=== PATIENT | female | born 1955 | race Caucasian/White ===

== ENCOUNTER → 2018-07-31 12:32 | Outpatient (CLI) | payer OTHER, SELFPAY ==
--- NOTE | 2018-07-31 | DI.MG.S_ITS ---
BILATERAL DIGITAL SCREENING MAMMOGRAM 3D/2D WITH CAD: 07/31/2018 CLINICAL: Routine screening. Family history of breast cancer. Comparison is made to exams dated: 07/29/2016 mammogram - [facility], 02/19/2014 mammogram, and 11/14/2012 mammogram - [facility]. There are scattered fibroglandular elements in both breasts. Current study was also evaluated with a Computer Aided Detection (CAD) system. Punctate right breast calcifications are stable in appearance to comparison exams. No significant masses, calcifications, or other findings are seen in either breast. There has been no significant interval change. IMPRESSION: There is no mammographic evidence of malignancy. A 1 year screening mammogram is recommended. This exam was interpreted at Station ID: [id number]. NOTE: For mammograms, a report in lay terms will be sent to the patient. Approximately 15% of breast malignancies will not be visualized mammographically. In the management of a palpable breast mass, a negative mammogram must not discourage biopsy of a clinically suspicious lesion. Electronically Signed By: Wiliam Avalos M.D. ecl/:07/31/2018 18:02:24 letter sent: Normal Exam ACR BI-RADS Category 2: Benign Finding(s) 3342F
--- NOTE | 2018-07-31 | DI.RAD.S_ITS ---
This blank DEXA report has been sent in error by the PACS system. The correct and complete report will be forthcoming in 1-2 days. Thank you for your patience and understanding. Dictated by: Joanne Mariano M.D. on 07/31/2018 at 14:33 Approved by: Joanne Mariano M.D. on 07/31/2018 at 14:33
== END ==
PROVIDERS: Family Provider Internal Medicine; PCP Internal Medicine; Visit Provider Internal Medicine
DX: Z12.31 Encounter for screening mammogram for malignant neoplasm of breast (principal); Z80.3 Family history of malignant neoplasm of breast; Z13.820 Encounter for screening for osteoporosis; M85.852 Other specified disorders of bone density and structure, left thigh; Z78.0 Asymptomatic menopausal state; Z87.891 Personal history of nicotine dependence
CPT/HCPCS: 77063; 77067; 77080

== ENCOUNTER → 2018-08-23 08:48 | Outpatient (CLI) | payer OTHER, SELFPAY ==
[2018-08-23 09:26] LABS: Add Manual Diff / Slide Review NO; Basophils Absolute Auto 100 /uL (0-100); Basophils Percent Auto 1.1 % (0-2); Eosinophils Absolute Auto 200 /uL (0-450); Eosinophils Percent Auto 4.3 % (2-4); Lymphocytes Absolute Auto 2000 /uL (1100-4500); Lymphocytes Percent Auto 35.4 % (25-40); Mean Corpuscular HGB Conc 32.5 % (30-36); Mean Corpuscular Hemoglobin 26.1 PG (26-34); Mean Corpuscular Volume 80.2 fL (80-100); Monocytes Absolute Auto 400 /uL (0-900); Monocytes Percent Auto 7.9 % (3-14); Neutrophils Absolute Auto 2900 /uL (1500-7000); Neutrophils Percent Auto 51.3 % (50-75); Platelet Count 381 X10^3/uL (150-400); Red Blood Cell Count 4.98 X10^6/uL (4.0-5.2); White Blood Cell Count 5.6 X10^3/uL (4.5-11.0)
[2018-08-23 09:38] LABS: Alanine Aminotransferase 23 IU/L (9-52); Albumin 4.4 g/dL (3.5-5.0); Albumin Globulin Ratio 1.5 (1.0-2.8); Alkaline Phosphatase 73 U/L (38-126); Aspartate Aminotransferase 25 IU/L (14-36); BUN Creatinine Ratio 17.1 (6-22); Bilirubin Total 0.5 mg/dL (0.2-1.3); Blood Urea Nitrogen 12 mg/dL (7-17); Calcium 9.3 mg/dL (8.4-10.2); Carbon Dioxide 30 mmol/L (22-32); Chloride 103 mmol/L (98-107); Cholesterol 186 mg/dL (140-199); Estimated Glomerular Filt Rate > 60.0 mL/min (>60); Glucose 86 mg/dL (80-110); HDL Cholesterol 47 mg/dL (40-60); HEMOLYSIS < 15 (0-50); LDL Cholesterol Calculated 116 mg/dL (<100); Potassium 4.3 mmol/L (3.4-5.1); Sodium 140 mmol/L (137-145); Total Protein 7.4 g/dL (6.3-8.2); Triglycerides 115 mg/dL (35-150)
[2018-08-23 09:52] LABS: Vitamin D 25 Hydroxy (D3) 51.1 ng/mL (30.0-100.0)
[2018-08-23 10:07] LABS: Thyroid Stimulating Hormone 1.85 uIU/mL (0.47-4.68)
== END ==
PROVIDERS: PCP Internal Medicine; Visit Provider Internal Medicine
DX: Z00.00 Encounter for general adult medical examination without abnormal findings (principal); F33.42 Major depressive disorder, recurrent, in full remission; N95.2 Postmenopausal atrophic vaginitis; Z87.81 Personal history of (healed) traumatic fracture
CPT/HCPCS: 36415; 80053; 80061; 82306; 84443; 85025

== ENCOUNTER → 2018-08-23 09:14 | Outpatient (CLI) | payer OTHER, SELFPAY ==
--- NOTE | 2018-08-23 | DI.RAD.S_ITS ---
PROCEDURE: XR SACROILIAC JOINT MIN 3V INDICATIONS: LUMBAR PAIN TECHNIQUE: 3 views of the sacroiliac joints were acquired. COMPARISON: None. FINDINGS: Bones: No bony erosions or ankylosis. No suspicious bony lesions. No fractures. Minimal osteoarthritic change at the inferior third of each sacroiliac joint. Soft tissues: Overlying bowel gas pattern is normal. No suspicious soft tissue densities. IMPRESSION: Normal study except for mild degenerative osteoarthritic change at the inferior third of each sacroiliac joint. Dictated by: Manohar Tapia M.D. on 08/23/2018 at 10:13 Approved by: Manohar Tapia M.D. on 08/23/2018 at 10:13
--- NOTE | 2018-08-23 | DI.RAD.S_ITS ---
PROCEDURE: XR LUMBAR SPINE 2-3V INDICATIONS: LUMBAR PAIN TECHNIQUE: 3 views of the lumbar spine were acquired. COMPARISON: [facility], CR, XR SACROILIAC JOINT MIN 3V, 08/23/2018, 9:20. FINDINGS: Bones: 5 iyr-kec-hagkoae vertebrae are present. There is normal bony alignment. No vertebral body compression fractures. No suspicious bony lesions. Note is made of what appears to be a prior osteotomy resection of the coccyx from the sacrococcygeal junction inferiorly. Mild to moderate lumbosacral spine degenerative disc disease at L3-4 and minimal such degeneration elsewhere. Facet osteoarthritis is moderate at L5-S1. Soft tissues: Overlying bowel gas pattern is normal. No suspicious soft tissue calcifications. IMPRESSION: Prior coccygeal resection appears to have been performed. Please correlate clinically. Moderate L3-4 degenerative disc disease. Moderate facet osteoarthritis bilaterally at L5-S1. No acute trauma found. Dictated by: Manohar Tapia M.D. on 08/23/2018 at 10:14 Approved by: Manohar Tapia M.D. on 08/23/2018 at 10:15
== END ==
PROVIDERS: PCP Internal Medicine; Visit Provider Internal Medicine
DX: M54.5 Low back pain (principal); M51.36 Other intervertebral disc degeneration, lumbar region; M47.817 Spondylosis without myelopathy or radiculopathy, lumbosacral region; Z00.00 Encounter for general adult medical examination without abnormal findings; F33.42 Major depressive disorder, recurrent, in full remission; N95.2 Postmenopausal atrophic vaginitis; Z87.81 Personal history of (healed) traumatic fracture
CPT/HCPCS: 36415; 72100; 72202; 80053; 80061; 82306; 84443; 85025

== ENCOUNTER → 2019-12-24 21:43 | Outpatient (CLI) | payer OTHER, SELFPAY ==
[2019-12-24 22:00] LABS: Add Manual Diff / Slide Review NO; Basophils Absolute Auto 100 /uL (0-100); Basophils Percent Auto 1.2 % (0-2); Eosinophils Absolute Auto 100 /uL (0-450); Eosinophils Percent Auto 1.1 % (2-4); Hematocrit 38.6 % (36-46); Hemoglobin 12.6 g/dL (12.0-16.0); Lymphocytes Absolute Auto 1500 /uL (1100-4500); Mean Corpuscular HGB Conc 32.5 % (30-36); Mean Corpuscular Hemoglobin 26.7 PG (26-34); Mean Corpuscular Volume 82.2 fL (80-100); Monocytes Absolute Auto 400 /uL (0-900); Monocytes Percent Auto 5.7 % (3-14); Neutrophils Absolute Auto 4400 /uL (1500-7000); Platelet Count 373 X10^3/uL (150-400); Red Cell Distribution Width 14.1 % (11.6-14.8); White Blood Cell Count 6.3 X10^3/uL (4.5-11.0)
[2019-12-24 22:51] LABS: TSH w/ Reflex to FT4 1.25 uIU/mL (0.47-4.68)
[2019-12-25 04:34] LABS: Alanine Aminotransferase 17 IU/L (<35); Albumin 4.5 g/dL (3.5-5.0); Albumin Globulin Ratio 1.7 (1.0-2.8); Alkaline Phosphatase 86 U/L (38-126); Aspartate Aminotransferase 27 IU/L (14-36); BUN Creatinine Ratio 14.9 (6-22); Bilirubin Total 0.4 mg/dL (0.2-1.3); Blood Urea Nitrogen 10 mg/dL (7-17); Calcium 9.4 mg/dL (8.4-10.2); Carbon Dioxide 28 mmol/L (22-32); Chloride 97 mmol/L (98-107); Estimated Glomerular Filt Rate > 60.0 mL/min (>60); Globulin 2.7 g/dL (1.7-4.1); Glucose 87 mg/dL (80-110); HEMOLYSIS < 15 (0-50); Potassium 4.2 mmol/L (3.4-5.1); Sodium 135 mmol/L (137-145); Total Protein 7.2 g/dL (6.3-8.2)
== END ==
PROVIDERS: PCP Internal Medicine; Visit Provider Internal Medicine
DX: R63.4 Abnormal weight loss (principal)
CPT/HCPCS: 80053; 84134; 84443; 85025

== ENCOUNTER → 2019-12-25 11:50 | Outpatient (CLI) | payer OTHER, SELFPAY ==
--- NOTE | 2019-12-25 | DI.RAD.S_ITS ---
PROCEDURE: XR CHEST 2V INDICATIONS: WEIGHT LOSS OBS ON EXAMINATION TECHNIQUE: 2 views of the chest were acquired. COMPARISON: None. FINDINGS: Surgical changes and devices: None. Lungs and pleura: Lungs are clear. No pleural effusions or pneumothorax. Mediastinum: Mediastinal contours are normal. Heart size is normal. Bones and chest wall: No suspicious bony abnormalities. Soft tissues appear unremarkable. IMPRESSION: No acute cardiopulmonary findings. Dictated by: Yessica Moran M.D. on 12/25/2019 at 15:23 Approved by: Yessica Moran M.D. on 12/25/2019 at 15:24
--- NOTE | 2019-12-25 | DI.MRI.S_ITS ---
PROCEDURE: MR HEAD/BRAIN WO/W CON INDICATIONS: New daily persistent headache (NDPH)/ weight loss TECHNIQUE: Noncontrast axial T1 spin echo, axial T2 fast spin echo, sagittal and axial FLAIR, coronal T2 fast spin echo, axial gradient echo, axial diffusion and ADC through the brain. After the administration of contrast, axial and coronal T1 spin echo with fat saturation through the brain. COMPARISON: None. FINDINGS: Image quality: Excellent. CSF spaces: Basal cisterns are patent. No extra-axial fluid collections. Ventricles are normal in size and shape. Brain: No midline shift. No intracranial bleeds or masses. No abnormal intracranial enhancement. There is cerebral volume loss for age. There is periventricular white matter chronic small vessel ischemic change. The brainstem appears normal. Diffusion-weighted images demonstrate no acute ischemic insults. No chronic ischemic insults. Normal intravascular flow voids are present. Partially empty sella is incidentally noted. Skull and face: Calvarial marrow is normal in signal. Orbits appear normal. Sinuses: Sinuses and mastoids appear clear. IMPRESSION: No imaging explanation is found for this patient's presenting symptoms. No masses or abnormal enhancement can be seen. Note is made of age-appropriate brain parenchymal volume loss and chronic small vessel ischemic changes. Dictated by: Vish Durham M.D. on 12/25/2019 at 12:14 Approved by: Vish Durham M.D. on 12/25/2019 at 12:15
== END ==
PROVIDERS: PCP Internal Medicine; Referring Provider Internal Medicine; Visit Provider Internal Medicine
DX: G44.52 New daily persistent headache (NDPH) (principal); R63.4 Abnormal weight loss
CPT/HCPCS: 70553; 71046; A9579

== ENCOUNTER → 2020-02-29 08:34 | Outpatient (CLI) | payer OTHER, SELFPAY ==
--- NOTE | 2020-02-29 | DI.MG.S_ITS ---
BILATERAL DIGITAL SCREENING MAMMOGRAM 3D/2D WITH CAD: 02/29/2020 CLINICAL: Routine screening. Family history of breast cancer. Comparison is made to exams dated: 07/31/2018 mammogram, 07/29/2016 mammogram - [facility], and 02/19/2014 mammogram - [facility]. There are scattered fibroglandular elements in both breasts. Current study was also evaluated with a Computer Aided Detection (CAD) system. There are benign calcifications in both breasts. No significant masses, calcifications, or other findings are seen in either breast. There has been no significant interval change. IMPRESSION: BENIGN There is no mammographic evidence of malignancy. A 1 year screening mammogram is recommended. This exam was interpreted at Station ID: [id number]. NOTE: For mammograms, a report in lay terms will be sent to the patient. Approximately 15% of breast malignancies will not be visualized mammographically. In the management of a palpable breast mass, a negative mammogram must not discourage biopsy of a clinically suspicious lesion. Electronically Signed By: Lasha roa/caryl:02/29/2020 13:03:04 letter sent: Normal Exam ACR BI-RADS Category 2: Benign Finding(s) 3342F
== END ==
PROVIDERS: PCP Internal Medicine; Referring Provider Internal Medicine; Visit Provider Internal Medicine
DX: Z12.31 Encounter for screening mammogram for malignant neoplasm of breast (principal); Z80.3 Family history of malignant neoplasm of breast
CPT/HCPCS: 77063; 77067

== ENCOUNTER → 2021-02-16 14:28 | Outpatient (CLI) | payer MEDICARE, OTHER, SELFPAY ==
[2021-02-16 18:08] LABS: COVID19 -Nasal RAPID Negative (Negative)
== END ==
PROVIDERS: PCP Internal Medicine; Visit Provider Nurse Practitioner Family
DX: Z20.822 Contact with and (suspected) exposure to COVID-19 (principal); J02.9 Acute pharyngitis, unspecified; R53.83 Other fatigue
CPT/HCPCS: 87635

== ENCOUNTER → 2021-05-15 08:29 | Outpatient (CLI) | payer MEDICARE, OTHER, SELFPAY ==
--- NOTE | 2021-05-15 08:33 | DI.MG.S_ITS ---
BILATERAL DIGITAL SCREENING MAMMOGRAM 3D/2D WITH CAD: 05/15/2021 CLINICAL: Routine screening. Family history of breast cancer. Comparison is made to exams dated: 02/29/2020 mammogram, 07/31/2018 mammogram, and 07/29/2016 mammogram - [facility]. There are scattered fibroglandular elements in both breasts. Current study was also evaluated with a Computer Aided Detection (CAD) system. There are stable benign calcifications in both breasts. No significant masses, calcifications, or other findings are seen in either breast. There has been no significant interval change. IMPRESSION: BENIGN There is no mammographic evidence of malignancy. A 1 year screening mammogram is recommended. This exam was interpreted at Station ID: [id number]. NOTE: For mammograms, a report in lay terms will be sent to the patient. Approximately 15% of breast malignancies will not be visualized mammographically. In the management of a palpable breast mass, a negative mammogram must not discourage biopsy of a clinically suspicious lesion. Electronically Signed By: Mike Shipley acr/caryl:05/15/2021 11:02:47 letter sent: Normal Exam ACR BI-RADS Category 2: Benign Finding(s) 3342F
== END ==
PROVIDERS: PCP Family Medicine; Referring Provider Internal Medicine; Visit Provider Internal Medicine
DX: Z12.31 Encounter for screening mammogram for malignant neoplasm of breast (principal); Z80.3 Family history of malignant neoplasm of breast
CPT/HCPCS: 77063; 77067

== ENCOUNTER → 2022-11-23 07:42 | Outpatient (CLI) | payer MEDICARE, OTHER, SELFPAY ==
--- NOTE | 2022-11-23 | DI.US.S_ITS ---
PROCEDURE: US ARTERIAL DUPLEX LE LT INDICATIONS: COLD LEG TECHNIQUE: Color and pulse Doppler interrogation was performed of the left lower extremity arterial system, with image documentation. COMPARISON: None. FINDINGS: Common femoral artery: 104 cm/sec, with triphasic flow. Deep femoral artery: 67 cm/sec, with triphasic flow. Proximal superficial femoral artery: 98 cm/sec, with triphasic flow. Mid superficial femoral artery: 98 cm/sec, with triphasic flow. Distal superficial femoral artery: 68 cm/sec, with triphasic flow. Popliteal artery: 74 cm/sec, with triphasic flow. Posterior tibial artery: 57 cm/sec, with biphasic flow. Anterior tibial artery/dorsalis pedis: 59 cm/sec, with biphasic flow. Valverde-scale imaging description: No significant plaque IMPRESSION: No significant plaque by imaging or velocity/waveform criteria. Dictated by: Mike Shipley M.D. on 11/23/2022 at 13:13 Approved by: Mike Shipley M.D. on 11/23/2022 at 13:15
== END ==
PROVIDERS: PCP Student in an Organized Health Care Education/Training Program; Referring Provider Physician Assistant; Visit Provider Physician Assistant
DX: R20.9 Unspecified disturbances of skin sensation (principal)
CPT/HCPCS: 93926

== ENCOUNTER → 2024-04-19 08:55 | Outpatient (CLI) | payer MEDICARE, OTHER, SELFPAY ==
--- NOTE | 2024-04-19 08:56 | DI.MG.S_ITS ---
BILATERAL DIGITAL SCREENING MAMMOGRAM 3D/2D WITH CAD: 04/19/2024 CLINICAL: Routine screening. Family history of breast cancer. Comparison is made to exams dated: 03/23/2023 mammogram - [facility], 05/15/2021 mammogram, and 02/29/2020 mammogram - [facility]. There are scattered areas of fibroglandular density (category b / 25%-50% glandular tissue). Current study was also evaluated with a Computer Aided Detection (CAD) system. There are stable benign calcifications in both breasts. No significant masses, calcifications, or other findings are seen in either breast. There has been no significant interval change. IMPRESSION: BENIGN There is no mammographic evidence of malignancy. A 1 year screening mammogram is recommended. Based on the Tyrer Cuzick model (a risk assessment model) the patient's lifetime risk is 13.8% and her 10 year risk is 7.8%. According to the ACR, ACS, and NCCN guidelines, an annual breast MRI exam along with mammogram is recommended if the patient's lifetime risk is 20% or greater. This exam was interpreted at Station ID: [id number]. NOTE: For mammograms, a report in lay terms will be sent to the patient. Approximately 15% of breast malignancies will not be visualized mammographically. In the management of a palpable breast mass, a negative mammogram must not discourage biopsy of a clinically suspicious lesion. Electronically Signed By: Yessica morocho/caryl:04/19/2024 10:28:03 letter sent: Normal Exam ACR BI-RADS Category 2: Benign
== END ==
PROVIDERS: PCP Student in an Organized Health Care Education/Training Program; Referring Provider Student in an Organized Health Care Education/Training Program; Visit Provider Student in an Organized Health Care Education/Training Program
DX: Z12.31 Encounter for screening mammogram for malignant neoplasm of breast (principal); Z80.3 Family history of malignant neoplasm of breast
CPT/HCPCS: 77063; 77067

== ENCOUNTER → 2025-03-05 13:53 | Outpatient (CLI) | payer MEDICARE, OTHER, SELFPAY ==
--- NOTE | 2025-03-05 13:56 | DI.RAD.S_ITS ---
PROCEDURE: XR TIBIA FIBULA LT 2V INDICATIONS: Pain in left leg TECHNIQUE: 2 views of the tibia and fibula were acquired. COMPARISON: None. FINDINGS / IMPRESSION: No radiographic evidence of displaced fracture, dislocation or high attenuation foreign body. Mild degenerative changes of the left ankle tibiotalar joint partially imaged. If symptoms persist or worsen, or there is high clinical suspicion of abnormality, MRI could be performed. Dictated by: Ted Hoffmann M.D. on 03/06/2025 at 15:03 Approved by: Ted Hoffmann M.D. on 03/06/2025 at 15:05
--- NOTE | 2025-03-05 13:56 | DI.RAD.S_ITS ---
PROCEDURE: XR KNEE LT 4V INDICATIONS: Pain in left leg TECHNIQUE: 4 views of the knee were acquired. COMPARISON: None. FINDINGS: Severe degenerative changes of the left knee with joint space narrowing and large osteophytes, sclerotic changes most notably in the lateral greater than patellofemoral greater than medial compartment. There are multiple calcifications posteriorly some of which related to osteophytes or fabella however intra-articular loose bodies could have a similar appearance. Trace knee joint effusion. No radiographic evidence of displaced fracture, dislocation or high attenuation foreign body. IMPRESSION: Severe degenerative changes as discussed above. If symptoms persist or worsen, or there is high clinical suspicion of abnormality, MRI could be performed. Dictated by: Ted Hoffmann M.D. on 03/06/2025 at 15:06 Approved by: Ted Hoffmann M.D. on 03/06/2025 at 15:13
== END ==
LOC: RAD 13:54
PROVIDERS: PCP Family Medicine; Referring Provider Family Medicine; Visit Provider Family Medicine
DX: M79.605 Pain in left leg (principal); M25.762 Osteophyte, left knee
CPT/HCPCS: 73564; 73590